=== PATIENT | female | born 1935 | race Two or more races ===

== ENCOUNTER 2021-04-30 10:00 | Outpatient (CLI) | payer MEDICARE, BC | END 2021-04-30 23:59 | disposition home or self-care (01) | LOC: WOU 10:00 | PROVIDERS: ATTEND Specialist | DX: I87.311 Chronic venous hypertension (idiopathic) with ulcer of right lower extremity (principal); L97.818 Non-pressure chronic ulcer of other part of right lower leg with other specified severity; R60.0 Localized edema; E11.9 Type 2 diabetes mellitus without complications; I10 Essential (primary) hypertension | CPT/HCPCS: A6209; G0463 ==